=== PATIENT | male | born 1990 | race Two or more races ===

== ENCOUNTER 2018-09-20 23:09 | Emergency (ER) | payer OTHER ==
[~2018-09-20] VITALS: Ht 182.9 cm; Wt 68.0 kg
[2018-09-21] MEDS ORDERED: KETO10TA2 PO (02:39)
== END 2018-09-21 02:50 | disposition home or self-care (01) ==
LOC: ER 23:09
DX: S52.515A Nondisplaced fracture of left radial styloid process, initial encounter for closed fracture (principal); W22.8XXA Striking against or struck by other objects, initial encounter; Y93.89 Activity, other specified; Y92.89 Other specified places as the place of occurrence of the external cause; Y99.8 Other external cause status

== ENCOUNTER 2019-09-06 15:19 | Outpatient (CLI) | payer OTHER ==
[~2019-09-06 15:19] MED LIST: KETO10TA2 PO
== END 2019-09-06 15:29 | disposition home or self-care (01) ==
LOC: LAB 15:19
DX: R05 Cough (principal); J11.1 Influenza due to unidentified influenza virus with other respiratory manifestations